=== PATIENT | male | born 1960 | race Caucasian/White ===

== ENCOUNTER 2023-10-23 15:26 | Emergency (ER) | payer MEDICARE, OTHER ==
[~2023-10-23] VITALS: Ht 182.9 cm; Wt 88.6 kg
[2023-10-23 15:31] VITALS: TEMP 98
[2023-10-23 18:29] VITALS: BP 128/85; PULSE 67
== END 2023-10-23 18:31 | disposition home or self-care (01) ==
LOC: COL.ER 15:26
DX: R04.0 Epistaxis (principal)